=== PATIENT | male | born 1955 | race African-American/Black ===

== ENCOUNTER 2017-10-17 10:28 | Inpatient (IN) | payer OTHER ==
[2017-10-17 11:01] VITALS: BMI 24.7
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
[2017-10-17] MEDS ORDERED: guaiFENesin/D-METHORPHAN HB 10 ML UNIT-DOSE CUPS PO PRN (12:18)
[2017-10-17] MEDS ORDERED: P-EPHED 60MG/TRIPROLIDI 2.5MG TABLET PO PRN (12:18)
[2017-10-17] MEDS ORDERED: chlordiazePOXIDE HCL 25 MG CAPSULE PO PRN (12:18)
[2017-10-17] MEDS ORDERED: MAG HYDROX/AL HYDROX/SIMETH 30 ML UNIT-DOSE CUP PO PRN (12:18)
[2017-10-17] MEDS ORDERED: MAGNESIUM HYDROX 2400MG/30ML ORAL SUSPENSION 30 ML CUP PO PRN (12:18)
[2017-10-17] MEDS ORDERED: MAGNESIUM CITRATE 300 ML BOTTLE PO PRN (12:18)
[2017-10-17] MEDS ORDERED: MENTHOL/PHENOL 1 EACH UD MM PRN (12:18)
[2017-10-17] MEDS ORDERED: NICOTINE POLACRILEX 2 MG GUM BUC PRN (12:18)
[2017-10-17] MEDS ORDERED: LOPERAMIDE HCL 2 MG CAPSULE PO PRN (12:18)
[2017-10-17] MEDS ORDERED: IBUPROFEN 400 MG TABLET (FP) PO PRN (12:18)
[2017-10-17] MEDS ORDERED: ACETAMINOPHEN 325 MG TABLET (FP) PO PRN (12:18)
[2017-10-17] MEDS ORDERED: chlordiazePOXIDE HCL 25 MG CAPSULE PO ONE (12:50)
[2017-10-17] MEDS: NICOTINE 14 MG/24 HOURS TOPICAL PATCH TD SCH (13:16)
[2017-10-17 15:08] LABS: HEMATOCRIT 43.6 % (35.4-49); MCH 32.7 pg (25.7-33.7); MCHC 34.4 g/dl (32.0-35.9); MEAN CELL VOLUME 95.2 fl (80-96); PLATELET COUNT 354 K/MM3 (134-434); RBC 4.58 M/mm3 (4.00-5.60); RDW 14.3 % (11.9-15.9); WHITE BLOOD COUNT 5.8 K/mm3 (4.0-10.0)
[2017-10-17 15:18] LABS: ALBUMIN 4.2 g/dl (3.4-5.0); ANION GAP 10 (8-16); CALCIUM 9.5 mg/dL (8.5-10.1); CHLORIDE 99 mmol/L (98-107); CO2 26 mmol/L (21-32); GLUCOSE,RANDOM 138 mg/dL (74-106); POTASSIUM 4.2 mmol/L (3.5-5.1); SODIUM 135 mmol/L (136-145)
[2017-10-17 15:24] LABS: ALK PHOS 83 U/L (45-117); BILIRUBIN,TOTAL 0.3 mg/dL (0.2-1.0); BLOOD UREA NITROGEN 6 mg/dL (7-18); CREATININE 0.7 mg/dL (0.7-1.3); SGOT/AST 20 U/L (15-37); SGPT/ALT 22 U/L (12-78); TOT PROT 7.9 g/dl (6.4-8.2)
--- NOTE | 2017-10-17 15:50 | EKG ---
Test Reason : Blood Pressure : / mmHG Vent. Rate : 077 BPM Atrial Rate : 077 BPM P-R Int : 158 ms QRS Dur : 090 ms QT Int : 364 ms P-R-T Axes : 072 066 052 degrees QTc Int : 411 ms NORMAL SINUS RHYTHM NORMAL ECG NO PREVIOUS ECGS AVAILABLE Confirmed by JASIEL DA SILVA MD ([id number]) on 10/17/2017 3:50:01 PM Referred By: Confirmed By:JASIEL DA SILVA MD
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
[2017-10-17] MEDS: chlordiazePOXIDE HCL 25 MG CAPSULE PO SCH ×2 (17:32→22:24)
[2017-10-17 18:32] LABS: URINE APPEARANCE CLEAR; URINE BILIRUBIN NEGATIVE (NEGATIVE); URINE BLOOD 1+ (NEGATIVE); URINE COLOR LTYELLOW; URINE GLUCOSE (UA) NEGATIVE (NEGATIVE); URINE KETONE NEGATIVE (NEGATIVE); URINE LEUK ESTERASE NEGATIVE (NEGATIVE); URINE NITRITE NEGATIVE (NEGATIVE); URINE PROTEIN NEGATIVE (NEGATIVE); URINE UROBILINOGEN NEGATIVE mg/dL (0.2-1.0)
[2017-10-17 19:27] LABS: EPI CELLS RARE /HPF (FEW); URINE MUCUS RARE
[2017-10-17] MEDS: THIAMINE HCL 100 MG TABLET (FP) PO SCH (22:24)
[2017-10-17] MEDS: MELATONIN 5 MG TABLETS PO SCH (22:25)
[2017-10-17] MEDS: BENZTROPINE MESYLATE 1 MG TABLET (FP) PO SCH (22:25)
[2017-10-18] MEDS: chlordiazePOXIDE HCL 25 MG CAPSULE PO SCH ×4 (05:19→22:38)
[2017-10-18] MEDS: NICOTINE 14 MG/24 HOURS TOPICAL PATCH TD SCH (10:31)
[2017-10-18] MEDS: PRENATAL VITAMINS W/ FOLIC ACID TABLET (FP) PO SCH (10:31)
--- NOTE | 2017-10-18 12:19 | PN ---
[facility] CIWA - CIWA Score Nausea/Vomitin-No Nausea/No Vomiting Muscle Tremors: 4-Moderate,w/Arms Extend Anxiety: 4-Mod. Anxious/Guarded Agitation: 4-Moderately Restless Paroxysmal Sweats: 1-Minimal Palms Moist Orientation: 0-Oriented Tacttile Disturbances: 3-Moderate Itch/Numb/Burn Auditory Disturbances: 0-None Visual Disturbances: 0-None Headache: 0-None Present CIWA-Ar Total Score: 16 BHS Progress Note (SOAP) Subjective: ANXIETY,CHILLS,TREMORS. Objective: 10/18/17 12:18 Vital Signs Temperature 96.1 F L 10/18/17 10:31 Pulse Rate 80 10/18/17 10:31 Respiratory Rate 18 10/18/17 10:31 Blood Pressure 131/87 10/18/17 10:31 O2 Sat by Pulse Oximetry (%) Laboratory Last Values WBC 5.8 K/mm3 (4.0-10.0) 10/17/17 12:20 RBC 4.58 M/mm3 (4.00-5.60) 10/17/17 12:20 Hgb 15.0 GM/dL (11.7-16.9) 10/17/17 12:20 Hct 43.6 % (35.4-49) 10/17/17 12:20 MCV 95.2 fl (80-96) 10/17/17 12:20 MCH 32.7 pg (25.7-33.7) 10/17/17 12:20 MCHC 34.4 g/dl (32.0-35.9) 10/17/17 12:20 RDW 14.3 % (11.9-15.9) 10/17/17 12:20 Plt Count 354 K/MM3 (134-434) 10/17/17 12:20 MPV 8.0 fl (7.5-11.1) 10/17/17 12:20 Sodium 135 mmol/L (136-145) L 10/17/17 12:20 Potassium 4.2 mmol/L (3.5-5.1) 10/17/17 12:20 Chloride 99 mmol/L (98-107) 10/17/17 12:20 Carbon Dioxide 26 mmol/L (21-32) 10/17/17 12:20 Anion Gap 10 (8-16) 10/17/17 12:20 BUN 6 mg/dL (7-18) L D 10/17/17 12:20 Creatinine 0.7 mg/dL (0.7-1.3) 10/17/17 12:20 Creat Clearance w eGFR > 60 (>60) 10/17/17 12:20 Random Glucose 138 mg/dL (74-106) H D 10/17/17 12:20 Calcium 9.5 mg/dL (8.5-10.1) 10/17/17 12:20 Total Bilirubin 0.3 mg/dL (0.2-1.0) D 10/17/17 12:20 AST 20 U/L (15-37) 10/17/17 12:20 ALT 22 U/L (12-78) 10/17/17 12:20 Alkaline Phosphatase 83 U/L (45-117) 10/17/17 12:20 Total Protein 7.9 g/dl (6.4-8.2) 10/17/17 12:20 Albumin 4.2 g/dl (3.4-5.0) 10/17/17 12:20 Urine Color Ltyellow 10/17/17 17:00 Urine Appearance Clear 10/17/17 17:00 Urine pH 7.0 (5.0-8.0) 10/17/17 17:00 Ur Specific [place] 1.008 (1.001-1.035) 10/17/17 17:00 Urine Protein Negative (NEGATIVE) 10/17/17 17:00 Urine Glucose (UA) Negative (NEGATIVE) 10/17/17 17:00 Urine Ketones Negative (NEGATIVE) 10/17/17 17:00 Urine Blood 1+ (NEGATIVE) H 10/17/17 17:00 Urine Nitrite Negative (NEGATIVE) 10/17/17 17:00 Urine Bilirubin Negative (NEGATIVE) 10/17/17 17:00 Urine Urobilinogen Negative mg/dL (0.2-1.0) 10/17/17 17:00 Ur Leukocyte Esterase Negative (NEGATIVE) 10/17/17 17:00 Urine WBC (Auto) None /hpf (3-5) 10/17/17 17:00 Urine RBC (Auto) 2 /hpf (0-3) 10/17/17 17:00 Ur Epithelial Cells Rare /HPF (FEW) 10/17/17 17:00 Urine Mucus Rare 10/17/17 17:00 RPR Titer Nonreactive (NONREACTIVE) 10/17/17 12:20 Assessment: 10/18/17 12:18 WITHDRAWAL SX Plan: CONTINUE DETOX INCREASE PO FLUIDS
[2017-10-18] MEDS: THIAMINE HCL 100 MG TABLET (FP) PO SCH (22:37)
[2017-10-18] MEDS: MELATONIN 5 MG TABLETS PO SCH (22:38)
[2017-10-18] MEDS: BENZTROPINE MESYLATE 1 MG TABLET (FP) PO SCH (22:38)
[2017-10-19] MEDS: chlordiazePOXIDE HCL 25 MG CAPSULE PO SCH ×2 (05:42→10:15)
[2017-10-19] MEDS: PRENATAL VITAMINS W/ FOLIC ACID TABLET (FP) PO SCH (10:15)
[2017-10-19] MEDS: NICOTINE 14 MG/24 HOURS TOPICAL PATCH TD SCH (10:16)
--- NOTE | 2017-10-19 15:44 | PN ---
[facility] CIWA - CIWA Score Nausea/Vomitin-No Nausea/No Vomiting Muscle Tremors: 2 Anxiety: 3 Agitation: 2 Paroxysmal Sweats: 2 Orientation: 0-Oriented Tacttile Disturbances: 3-Moderate Itch/Numb/Burn Auditory Disturbances: 0-None Visual Disturbances: 1-Very Mild Sensitivity Headache: 0-None Present CIWA-Ar Total Score: 13 S Progress Note (SOAP) Subjective: Fatigue, Anxious, Tremors. Objective: PATIENT A & O X 3. NO ACUTE DISTRESS. 10/19/17 15:45 Vital Signs Temperature 95.6 F L 10/19/17 13:38 Pulse Rate 86 10/19/17 13:38 Respiratory Rate 18 10/19/17 13:38 Blood Pressure 115/71 10/19/17 13:38 O2 Sat by Pulse Oximetry (%) Laboratory Tests 10/17/17 10/17/17 10/17/17 12:20 12:20 12:20 WBC 5.8 RBC 4.58 Hgb 15.0 Hct 43.6 MCV 95.2 MCH 32.7 MCHC 34.4 RDW 14.3 Plt Count 354 MPV 8.0 Sodium 135 L Potassium 4.2 Chloride 99 Carbon Dioxide 26 Anion Gap 10 BUN 6 L D Creatinine 0.7 Creat Clearance w eGFR > 60 Random Glucose 138 H D Calcium 9.5 Total Bilirubin 0.3 D AST 20 ALT 22 Alkaline Phosphatase 83 Total Protein 7.9 Albumin 4.2 Urine Color Urine Appearance Urine pH Ur Specific [place] Urine Protein Urine Glucose (UA) Urine Ketones Urine Blood Urine Nitrite Urine Bilirubin Urine Urobilinogen Ur Leukocyte Esterase Urine WBC (Auto) Urine RBC (Auto) Ur Epithelial Cells Urine Mucus RPR Titer Nonreactive 10/17/17 17:00 WBC RBC Hgb Hct MCV MCH MCHC RDW Plt Count MPV Sodium Potassium Chloride Carbon Dioxide Anion Gap BUN Creatinine Creat Clearance w eGFR Random Glucose Calcium Total Bilirubin AST ALT Alkaline Phosphatase Total Protein Albumin Urine Color Ltyellow Urine Appearance Clear Urine pH 7.0 Ur Specific [place] 1.008 Urine Protein Negative Urine Glucose (UA) Negative Urine Ketones Negative Urine Blood 1+ H Urine Nitrite Negative Urine Bilirubin Negative Urine Urobilinogen Negative Ur Leukocyte Esterase Negative Urine WBC (Auto) None Urine RBC (Auto) 2 Ur Epithelial Cells Rare Urine Mucus Rare RPR Titer LABS NOTED. Assessment: 10/19/17 15:45 WITHDRAWAL SYMPTOMS. Plan: CONTINUE DETOX. INCREASE DAILY PO FLUID INTAKE.
[2017-10-19] MEDS: chlordiazePOXIDE 5 MG CAPSULE PO SCH ×2 (17:54→22:23)
[2017-10-19] MEDS: THIAMINE HCL 100 MG TABLET (FP) PO SCH (22:23)
[2017-10-19] MEDS: BENZTROPINE MESYLATE 1 MG TABLET (FP) PO SCH (22:23)
[2017-10-19] MEDS: MELATONIN 5 MG TABLETS PO SCH (22:23)
[2017-10-20] MEDS: chlordiazePOXIDE 5 MG CAPSULE PO SCH ×2 (05:42→10:23)
[2017-10-20] MEDS: PRENATAL VITAMINS W/ FOLIC ACID TABLET (FP) PO SCH (10:23)
[2017-10-20] MEDS: NICOTINE 14 MG/24 HOURS TOPICAL PATCH TD SCH (10:23)
--- NOTE | 2017-10-20 13:19 | PN ---
BHS Progress Note (SOAP) Subjective: Sweating, interrupted sleep Objective: 10/20/17 13:15 Last Vital Signs Temp Pulse Resp BP Pulse Ox 97.7 F 78 18 112/62 10/20/17 09:25 10/20/17 09:25 10/20/17 09:25 10/20/17 09:25 Laboratory Tests 10/17/17 10/17/17 10/17/17 12:20 12:20 12:20 WBC 5.8 RBC 4.58 Hgb 15.0 Hct 43.6 MCV 95.2 MCH 32.7 MCHC 34.4 RDW 14.3 Plt Count 354 MPV 8.0 Sodium 135 L Potassium 4.2 Chloride 99 Carbon Dioxide 26 Anion Gap 10 BUN 6 L D Creatinine 0.7 Creat Clearance w eGFR > 60 Random Glucose 138 H D Calcium 9.5 Total Bilirubin 0.3 D AST 20 ALT 22 Alkaline Phosphatase 83 Total Protein 7.9 Albumin 4.2 Urine Color Urine Appearance Urine pH Ur Specific [place] Urine Protein Urine Glucose (UA) Urine Ketones Urine Blood Urine Nitrite Urine Bilirubin Urine Urobilinogen Ur Leukocyte Esterase Urine WBC (Auto) Urine RBC (Auto) Ur Epithelial Cells Urine Mucus RPR Titer Nonreactive 10/17/17 17:00 WBC RBC Hgb Hct MCV MCH MCHC RDW Plt Count MPV Sodium Potassium Chloride Carbon Dioxide Anion Gap BUN Creatinine Creat Clearance w eGFR Random Glucose Calcium Total Bilirubin AST ALT Alkaline Phosphatase Total Protein Albumin Urine Color Ltyellow Urine Appearance Clear Urine pH 7.0 Ur Specific [place] 1.008 Urine Protein Negative Urine Glucose (UA) Negative Urine Ketones Negative Urine Blood 1+ H Urine Nitrite Negative Urine Bilirubin Negative Urine Urobilinogen Negative Ur Leukocyte Esterase Negative Urine WBC (Auto) None Urine RBC (Auto) 2 Ur Epithelial Cells Rare Urine Mucus Rare RPR Titer Labs noted: UA shows 1+ blood Assessment: 10/20/17 13:17 Withdrawal symptoms Noted with microscopic hematuria Plan: Continue detox Microscopic hematuria: encouraged to drink lots of water (at least 8 cups/day), repeat UA
[2017-10-20 17:09] LABS: URINE APPEARANCE CLEAR; URINE BILIRUBIN NEGATIVE (<2.0 mg/dL); URINE BLOOD NEGATIVE (NEGATIVE); URINE COLOR LTYELLOW; URINE GLUCOSE (UA) NEGATIVE (NEGATIVE); URINE KETONE NEGATIVE (NEGATIVE); URINE LEUK ESTERASE NEGATIVE (NEGATIVE); URINE NITRITE NEGATIVE (NEGATIVE); URINE PROTEIN NEGATIVE (NEGATIVE); URINE UROBILINOGEN NEGATIVE mg/dL (0.2-1.0)
[2017-10-20] MEDS: chlordiazePOXIDE HCL 10 MG CAPSULE PO SCH ×2 (17:32→22:29)
[2017-10-20] MEDS: THIAMINE HCL 100 MG TABLET (FP) PO SCH (22:29)
[2017-10-20] MEDS: BENZTROPINE MESYLATE 1 MG TABLET (FP) PO SCH (22:29)
[2017-10-20] MEDS: MELATONIN 5 MG TABLETS PO SCH (22:30)
[2017-10-21] MEDS: chlordiazePOXIDE HCL 10 MG CAPSULE PO SCH ×2 (05:50→10:20)
[2017-10-21 09:27] VITALS: BP 122/76; PULSE 83; TEMP 98.9
[2017-10-21] MEDS: PRENATAL VITAMINS W/ FOLIC ACID TABLET (FP) PO SCH (10:20)
[2017-10-21] MEDS: NICOTINE 14 MG/24 HOURS TOPICAL PATCH TD SCH (10:20)
--- NOTE | 2017-10-21 12:30 | PN ---
BHS Progress Note (SOAP) Subjective: Patient denies any current Detox symptoms and reports that he feels well overall. Objective: PATIENT A & O X 3, OBSERVED AMBULATING ON UNIT. NO ACUTE DISTRESS. 10/21/17 12:29 Vital Signs Temperature 98.9 F 10/21/17 09:26 Pulse Rate 83 10/21/17 09:26 Respiratory Rate 18 10/21/17 09:26 Blood Pressure 122/76 10/21/17 09:26 O2 Sat by Pulse Oximetry (%) Laboratory Tests 10/17/17 10/17/17 10/17/17 12:20 12:20 12:20 WBC 5.8 RBC 4.58 Hgb 15.0 Hct 43.6 MCV 95.2 MCH 32.7 MCHC 34.4 RDW 14.3 Plt Count 354 MPV 8.0 Sodium 135 L Potassium 4.2 Chloride 99 Carbon Dioxide 26 Anion Gap 10 BUN 6 L D Creatinine 0.7 Creat Clearance w eGFR > 60 Random Glucose 138 H D Calcium 9.5 Total Bilirubin 0.3 D AST 20 ALT 22 Alkaline Phosphatase 83 Total Protein 7.9 Albumin 4.2 Urine Color Urine Appearance Urine pH Ur Specific [place] Urine Protein Urine Glucose (UA) Urine Ketones Urine Blood Urine Nitrite Urine Bilirubin Urine Urobilinogen Ur Leukocyte Esterase Urine WBC (Auto) Urine RBC (Auto) Ur Epithelial Cells Urine Mucus RPR Titer Nonreactive 10/17/17 10/20/17 17:00 15:00 WBC RBC Hgb Hct MCV MCH MCHC RDW Plt Count MPV Sodium Potassium Chloride Carbon Dioxide Anion Gap BUN Creatinine Creat Clearance w eGFR Random Glucose Calcium Total Bilirubin AST ALT Alkaline Phosphatase Total Protein Albumin Urine Color Ltyellow Ltyellow Urine Appearance Clear Clear Urine pH 7.0 7.0 Ur Specific [place] 1.008 1.009 Urine Protein Negative Negative Urine Glucose (UA) Negative Negative Urine Ketones Negative Negative Urine Blood 1+ H Negative Urine Nitrite Negative Negative Urine Bilirubin Negative Negative Urine Urobilinogen Negative Negative Ur Leukocyte Esterase Negative Negative Urine WBC (Auto) None Urine RBC (Auto) 2 Ur Epithelial Cells Rare Urine Mucus Rare RPR Titer LABS NOTED. Assessment: 10/21/17 12:29 COMPLETION OF DETOX REGIMEN. Plan: PATIENT SCHEDULED FOR DISCHARGE FROM DETOX TODAY. PATIENT [facility] ([place]) FOR AFTERCARE.
--- NOTE | 2017-10-21 12:35 | DS ---
[facility] Detox Discharge Summary Admission Date: 10/17/17 Discharge Date: 10/21/17 - History Present History: Alcohol Dependence, Cannabis Dependence Additional Comments: PATIENT GOING TO [facility] ([place]) FOR AFTERCARE. PATIENT WAS DISCHARGED FROM DETOX UNIT IN STABLE MEDICAL CONDITION. Pertinent Past History: Nicotine dependence, Tremors, Schizophrenia, Depression. - Physical Exam Results Vital Signs: Vital Signs Temperature 98.9 F 10/21/17 09:26 Pulse Rate 83 10/21/17 09:26 Respiratory Rate 18 10/21/17 09:26 Blood Pressure 122/76 10/21/17 09:26 O2 Sat by Pulse Oximetry (%) Pertinent Admission Physical Exam Findings: WITHDRAWAL SYMPTOMS. Laboratory Tests 10/17/17 10/17/17 10/17/17 12:20 12:20 12:20 WBC 5.8 RBC 4.58 Hgb 15.0 Hct 43.6 MCV 95.2 MCH 32.7 MCHC 34.4 RDW 14.3 Plt Count 354 MPV 8.0 Sodium 135 L Potassium 4.2 Chloride 99 Carbon Dioxide 26 Anion Gap 10 BUN 6 L D Creatinine 0.7 Creat Clearance w eGFR > 60 Random Glucose 138 H D Calcium 9.5 Total Bilirubin 0.3 D AST 20 ALT 22 Alkaline Phosphatase 83 Total Protein 7.9 Albumin 4.2 Urine Color Urine Appearance Urine pH Ur Specific [place] Urine Protein Urine Glucose (UA) Urine Ketones Urine Blood Urine Nitrite Urine Bilirubin Urine Urobilinogen Ur Leukocyte Esterase Urine WBC (Auto) Urine RBC (Auto) Ur Epithelial Cells Urine Mucus RPR Titer Nonreactive 10/17/17 10/20/17 17:00 15:00 WBC RBC Hgb Hct MCV MCH MCHC RDW Plt Count MPV Sodium Potassium Chloride Carbon Dioxide Anion Gap BUN Creatinine Creat Clearance w eGFR Random Glucose Calcium Total Bilirubin AST ALT Alkaline Phosphatase Total Protein Albumin Urine Color Ltyellow Ltyellow Urine Appearance Clear Clear Urine pH 7.0 7.0 Ur Specific [place] 1.008 1.009 Urine Protein Negative Negative Urine Glucose (UA) Negative Negative Urine Ketones Negative Negative Urine Blood 1+ H Negative Urine Nitrite Negative Negative Urine Bilirubin Negative Negative Urine Urobilinogen Negative Negative Ur Leukocyte Esterase Negative Negative Urine WBC (Auto) None Urine RBC (Auto) 2 Ur Epithelial Cells Rare Urine Mucus Rare RPR Titer LABS NOTED. - Treatment Hospital Course: Detox Protocol Followed, Detoxed Safely, Responded well, Discharged Condition Good, Rehab Referral Accepted Patient has Accepted a Rehab Referral to: [facility] ([place], [place] . - Medication Discharge Medications: Ambulatory Orders Fluphenazine Decanoate [Prolixin Decanoate (Long-Acting Injection) -] 37.5 mg IM ASDIR 10/17/17 - Diagnosis (1) Alcohol dependence with uncomplicated withdrawal Current Visit: Yes Status: Acute (2) Cannabis dependence, uncomplicated Current Visit: Yes Status: Chronic (3) Nicotine dependence Current Visit: Yes Status: Chronic Qualifiers: Nicotine product type: cigarettes Substance use status: in withdrawal Qualified Code(s): F17.213 - Nicotine dependence, cigarettes, with withdrawal (4) Occasional tremors Current Visit: Yes Status: Chronic (5) Schizophrenia Current Visit: Yes Status: Chronic Qualifiers: Schizophrenia type: paranoid schizophrenia Qualified Code(s): F20.0 - Paranoid schizophrenia - AMA Did Patient Leave Against Medical Advice: No
== END 2017-10-21 13:17 | disposition home or self-care (01) | DRG 775 ==
LOC: YASAS 10:28 → Y3N 12:14
PROVIDERS: ADMIT Internal Medicine; ATTEND Internal Medicine
PROC: HZ2ZZZZ Detoxification Services for Substance Abuse Treatment (ICD-10-PCS; principal; 2017-10-17)
DX: F10.230 Alcohol dependence with withdrawal, uncomplicated (principal); F12.20 Cannabis dependence, uncomplicated; F17.210 Nicotine dependence, cigarettes, uncomplicated; F32.9 Major depressive disorder, single episode, unspecified; F20.0 Paranoid schizophrenia; R76.11 Nonspecific reaction to tuberculin skin test without active tuberculosis; R25.1 Tremor, unspecified; Z91.5 Personal history of self-harm
CPT/HCPCS: 36415; 80053; 81003; 81015; 85027; 86593; 93005; 93010

== ENCOUNTER 2021-06-26 14:27 | Inpatient (IN) | payer OTHER ==
[2021-06-26] MEDS ORDERED: MAGNESIUM CITRATE 300 ML BOTTLE PO PRN ×2 (16:02→16:08)
[2021-06-26] MEDS ORDERED: diazePAM 5 MG TABLET PO PRN ×2 (16:02→16:08)
[2021-06-26] MEDS ORDERED: NICOTINE 10 MG CARTRIDGE (INHALER) IH PRN ×2 (16:02→16:08)
[2021-06-26] MEDS ORDERED: IBUPROFEN 400 MG TABLET (FP) PO PRN ×2 (16:02→16:08)
[2021-06-26] MEDS ORDERED: METHOCARBAMOL 500 MG TABLET PO PRN ×2 (16:02→16:08)
[2021-06-26] MEDS ORDERED: MENTHOL/PHENOL 1 EACH UD MM PRN ×2 (16:02→16:08)
[2021-06-26] MEDS ORDERED: ACETAMINOPHEN 325 MG TABLET (FP) PO PRN ×4 (16:02→16:08)
[2021-06-26] MEDS ORDERED: ONDANSETRON *ODT* 4 MG TABLET SL PRN ×2 (16:02→16:08)
[2021-06-26] MEDS ORDERED: MAGNESIUM HYDROX 2400MG/30ML ORAL SUSPENSION 30 ML CUP PO PRN ×2 (16:02→16:08)
[2021-06-26] MEDS ORDERED: BISMUTH SUBSALICYLATE 524 MG/30 ML PO PRN ×2 (16:02→16:08)
[2021-06-26] MEDS ORDERED: MAG HYDROX/AL HYDROX/SIMETH 30 ML UNIT-DOSE CUP PO PRN ×2 (16:02→16:08)
[2021-06-26 16:41] VITALS: BMI 23.0
[2021-06-26] MEDS ORDERED: hydrOXYzine PAMOATE 25 MG CAPSULE (FP) PO SCH (18:00)
[2021-06-26] MEDS: hydrOXYzine PAMOATE 25 MG CAPSULE (FP) PO SCH ×2 (18:26→22:45)
[2021-06-26] MEDS ORDERED: THIAMINE HCL 100 MG TABLET (FP) PO SCH (22:00)
[2021-06-26] MEDS ORDERED: MELATONIN 5 MG TABLETS PO SCH (22:00)
[2021-06-26] MEDS: diazePAM 5 MG TABLET PO SCH (22:45)
[2021-06-26] MEDS: MELATONIN 5 MG TABLETS PO SCH (22:45)
[2021-06-26] MEDS ORDERED: diazePAM 5 MG TABLET PO SCH (23:00)
[2021-06-26] MEDS: THIAMINE HCL 100 MG TABLET (FP) PO SCH (23:12)
[2021-06-27] MEDS: diazePAM 5 MG TABLET PO SCH ×4 (05:06→22:12)
[2021-06-27] MEDS: hydrOXYzine PAMOATE 25 MG CAPSULE (FP) PO SCH ×5 (05:06→22:12)
[2021-06-27] MEDS ORDERED: PRENATAL VITAMINS W/ FOLIC ACID TABLET (FP) PO SCH (10:00)
[2021-06-27] MEDS: PRENATAL VITAMINS W/ FOLIC ACID TABLET (FP) PO SCH (10:04)
[2021-06-27 14:01] LABS: HEMOGLOBIN 13.5 GM/dL (11.7-16.9); MCH 33.3 pg (25.7-33.7); MCHC 35.5 g/dl (32.0-35.9); MEAN CELL VOLUME 93.9 fl (80-96); MEAN PLT VOLUME 7.7 fl (7.5-11.1); PLATELET COUNT 325 10^3/uL (134-434); RBC 4.04 M/mm3 (4.00-5.60); RDW 13.3 % (11.9-15.9); WHITE BLOOD COUNT 5.7 K/mm3 (4.0-10.0)
[2021-06-27 14:26] LABS: CALCIUM 9.2 mg/dL (8.5-10.1)
[2021-06-27 14:27] LABS: ALBUMIN 3.5 g/dl (3.4-5.0); BLOOD UREA NITROGEN 5.6 mg/dL (7-18)
[2021-06-27 14:30] LABS: CREATININE 0.8 mg/dL (0.55-1.3)
[2021-06-27 14:32] LABS: BILIRUBIN,TOTAL 0.3 mg/dL (0.2-1); TOT PROT 7.2 g/dl (6.4-8.2)
[2021-06-27] MEDS: BENZTROPINE MESYLATE 1 MG TABLET PO SCH (22:11)
[2021-06-27] MEDS: THIAMINE HCL 100 MG TABLET (FP) PO SCH (22:12)
[2021-06-27] MEDS: MELATONIN 5 MG TABLETS PO SCH (22:12)
[2021-06-28] MEDS: diazePAM 5 MG TABLET PO SCH ×3 (05:30→22:53)
[2021-06-28] MEDS: hydrOXYzine PAMOATE 25 MG CAPSULE (FP) PO SCH ×5 (05:30→22:52)
[2021-06-28] MEDS ORDERED: diazePAM 5 MG TABLET PO SCH (06:00)
[2021-06-28] MEDS: PRENATAL VITAMINS W/ FOLIC ACID TABLET (FP) PO SCH (10:15)
[2021-06-28] MEDS: MELATONIN 5 MG TABLETS PO SCH (22:52)
[2021-06-28] MEDS: BENZTROPINE MESYLATE 1 MG TABLET PO SCH (22:52)
[2021-06-28] MEDS: THIAMINE HCL 100 MG TABLET (FP) PO SCH (22:52)
[2021-06-29] MEDS: hydrOXYzine PAMOATE 25 MG CAPSULE (FP) PO SCH ×5 (05:15→22:06)
[2021-06-29] MEDS: diazePAM 5 MG TABLET PO SCH ×2 (05:15→17:47)
[2021-06-29] MEDS ORDERED: diazePAM 5 MG TABLET PO SCH (06:00)
[2021-06-29] MEDS: PRENATAL VITAMINS W/ FOLIC ACID TABLET (FP) PO SCH (10:13)
[2021-06-29] MEDS: MELATONIN 5 MG TABLETS PO SCH (22:06)
[2021-06-29] MEDS: THIAMINE HCL 100 MG TABLET (FP) PO SCH (22:06)
[2021-06-29] MEDS: BENZTROPINE MESYLATE 1 MG TABLET PO SCH (22:06)
[2021-06-30] MEDS: hydrOXYzine PAMOATE 25 MG CAPSULE (FP) PO SCH ×2 (05:08→10:11)
[2021-06-30] MEDS ORDERED: diazePAM 5 MG TABLET PO ONE ×2 (06:00)
[2021-06-30 09:06] VITALS: BP 133/76; PULSE 108; TEMP 97.3
[2021-06-30] MEDS: PRENATAL VITAMINS W/ FOLIC ACID TABLET (FP) PO SCH (10:10)
== END 2021-06-30 11:34 | disposition home or self-care (01) | DRG 897 ==
LOC: YASAS 14:27 → Y3N 16:35
PROVIDERS: ADMIT Allergy & Immunology; ATTEND Allergy & Immunology
PROC: HZ2ZZZZ Detoxification Services for Substance Abuse Treatment (ICD-10-PCS; principal; 2021-06-26)
DX: F10.230 Alcohol dependence with withdrawal, uncomplicated (principal); F14.20 Cocaine dependence, uncomplicated; F20.0 Paranoid schizophrenia; F12.220 Cannabis dependence with intoxication, uncomplicated; F17.210 Nicotine dependence, cigarettes, uncomplicated; E86.0 Dehydration; Z86.11 Personal history of tuberculosis; Z56.0 Unemployment, unspecified
CPT/HCPCS: 36415; 71046-TC-FY; 80053; 82947; 85027; 86780; 90853; C9803; U0003; U0005

== ENCOUNTER 2021-09-28 14:12 | Inpatient (IN) | payer OTHER ==
[2021-09-28] MEDS ORDERED: MAG HYDROX/AL HYDROX/SIMETH 30 ML UNIT-DOSE CUP PO PRN (15:27)
[2021-09-28] MEDS ORDERED: MAGNESIUM CITRATE 300 ML BOTTLE PO PRN (15:27)
[2021-09-28] MEDS ORDERED: LOPERAMIDE HCL 2 MG CAPSULE PO PRN (15:27)
[2021-09-28] MEDS ORDERED: ONDANSETRON *ODT* 4 MG TABLET SL PRN (15:27)
[2021-09-28] MEDS ORDERED: MAGNESIUM HYDROX 2400MG/30ML ORAL SUSPENSION 30 ML CUP PO PRN (15:27)
[2021-09-28] MEDS ORDERED: IBUPROFEN 400 MG TABLET (FP) PO PRN (15:27)
[2021-09-28] MEDS ORDERED: MENTHOL/PHENOL 1 EACH UD MM PRN (15:27)
[2021-09-28] MEDS ORDERED: BISMUTH SUBSALICYLATE 524 MG/30 ML PO PRN (15:27)
[2021-09-28] MEDS ORDERED: ACETAMINOPHEN 325 MG TABLET (FP) PO PRN ×2 (15:27)
[2021-09-28] MEDS ORDERED: NICOTINE 10 MG CARTRIDGE (INHALER) IH PRN (15:27)
[2021-09-28 15:49] VITALS: BMI 23.7
[2021-09-28] MEDS: hydrOXYzine PAMOATE 25 MG CAPSULE (FP) PO SCH ×2 (19:04→22:16)
[2021-09-28] MEDS: PRENATAL VITAMINS W/ FOLIC ACID TABLET (FP) PO SCH (19:04)
[2021-09-28] MEDS: THIAMINE HCL 100 MG TABLET (FP) PO SCH (22:16)
[2021-09-28] MEDS: BENZTROPINE MESYLATE 1 MG TABLET PO SCH (22:16)
[2021-09-28] MEDS: MELATONIN 5 MG TABLETS PO SCH (22:16)
[2021-09-29] MEDS: hydrOXYzine PAMOATE 25 MG CAPSULE (FP) PO SCH ×5 (05:53→21:18)
[2021-09-29] MEDS: NICOTINE 14 MG/24 HOURS TOPICAL PATCH TD SCH (10:28)
[2021-09-29] MEDS: PRENATAL VITAMINS W/ FOLIC ACID TABLET (FP) PO SCH (10:29)
[2021-09-29] MEDS: BENZTROPINE MESYLATE 1 MG TABLET PO SCH ×2 (10:29→21:17)
[2021-09-29] MEDS ORDERED: fluPHENAZine DECANOATE 125 MG/5ML VIAL IM SCH ×2 (12:45→13:00)
[2021-09-29 12:56] LABS: HEMATOCRIT 37.1 % (35.4-49); HEMOGLOBIN 13.4 GM/dL (11.7-16.9); MCH 33.3 pg (25.7-33.7); MEAN CELL VOLUME 92.4 fl (80-96); MEAN PLT VOLUME 7.2 fl (7.5-11.1); PLATELET COUNT 367 10^3/uL (134-434); RBC 4.01 M/mm3 (4.00-5.60); RDW 14.2 % (11.9-15.9); WHITE BLOOD COUNT 4.6 K/mm3 (4.0-10.0)
[2021-09-29 13:02] LABS: CALCIUM 9.6 mg/dL (8.5-10.1)
[2021-09-29 13:03] LABS: ALBUMIN 3.8 g/dl (3.4-5.0); BLOOD UREA NITROGEN 4.6 mg/dL (7-18)
[2021-09-29 13:06] LABS: CREATININE 0.7 mg/dL (0.55-1.3)
[2021-09-29 13:08] LABS: BILIRUBIN,TOTAL 0.3 mg/dL (0.2-1); TOT PROT 7.3 g/dl (6.4-8.2)
[2021-09-29] MEDS ORDERED: fluPHENAZine DECANOATE 125 MG/5ML VIAL IM ONE (13:30)
[2021-09-29] MEDS: THIAMINE HCL 100 MG TABLET (FP) PO SCH (21:17)
[2021-09-29] MEDS: MELATONIN 5 MG TABLETS PO SCH (21:17)
[2021-09-30] MEDS: hydrOXYzine PAMOATE 25 MG CAPSULE (FP) PO SCH ×5 (05:58→21:21)
[2021-09-30] MEDS: NICOTINE 14 MG/24 HOURS TOPICAL PATCH TD SCH (09:13)
[2021-09-30] MEDS: PRENATAL VITAMINS W/ FOLIC ACID TABLET (FP) PO SCH (09:13)
[2021-09-30] MEDS: BENZTROPINE MESYLATE 1 MG TABLET PO SCH ×2 (09:13→21:21)
[2021-09-30] MEDS: MELATONIN 5 MG TABLETS PO SCH (21:21)
[2021-09-30] MEDS: METHOCARBAMOL 500 MG TABLET PO PRN (21:21)
[2021-09-30] MEDS: THIAMINE HCL 100 MG TABLET (FP) PO SCH (21:21)
[2021-10-01] MEDS: hydrOXYzine PAMOATE 25 MG CAPSULE (FP) PO SCH ×5 (06:16→21:14)
[2021-10-01] MEDS: PRENATAL VITAMINS W/ FOLIC ACID TABLET (FP) PO SCH (10:07)
[2021-10-01] MEDS: BENZTROPINE MESYLATE 1 MG TABLET PO SCH ×2 (10:07→21:15)
[2021-10-01] MEDS: METHOCARBAMOL 500 MG TABLET PO PRN ×2 (10:07→21:14)
[2021-10-01] MEDS: NICOTINE 14 MG/24 HOURS TOPICAL PATCH TD SCH (10:07)
[2021-10-01] MEDS: THIAMINE HCL 100 MG TABLET (FP) PO SCH (21:15)
[2021-10-01] MEDS: MELATONIN 5 MG TABLETS PO SCH (21:15)
[2021-10-02] MEDS: hydrOXYzine PAMOATE 25 MG CAPSULE (FP) PO SCH ×3 (07:06→09:41)
[2021-10-02 07:09] VITALS: BP 126/80; PULSE 101; TEMP 97.9
[2021-10-02] MEDS: NICOTINE 14 MG/24 HOURS TOPICAL PATCH TD SCH (09:41)
[2021-10-02] MEDS: PRENATAL VITAMINS W/ FOLIC ACID TABLET (FP) PO SCH (09:41)
[2021-10-02] MEDS: BENZTROPINE MESYLATE 1 MG TABLET PO SCH (10:44)
== END 2021-10-02 11:50 | disposition left against medical advice (07) | DRG 894 ==
LOC: YASAS 14:12 → Y3N 17:33 → Y5N 09-29 13:21
PROVIDERS: ADMIT Allergy & Immunology; ATTEND Allergy & Immunology
PROC: HZ42ZZZ Group Counseling for Substance Abuse Treatment, Cognitive-Behavioral (ICD-10-PCS; principal; 2021-09-28)
DX: F10.20 Alcohol dependence, uncomplicated (principal); F11.20 Opioid dependence, uncomplicated; F14.20 Cocaine dependence, uncomplicated; F20.0 Paranoid schizophrenia; F12.20 Cannabis dependence, uncomplicated; F17.210 Nicotine dependence, cigarettes, uncomplicated; E78.00 Pure hypercholesterolemia, unspecified
CPT/HCPCS: 36415; 80053; 85027; 86780; 90853; C9803; H0038-GT; U0003; U0005

== ENCOUNTER 2023-12-26 13:32 | Inpatient (IN) | payer OTHER ==
[2023-12-26 14:22] VITALS: BMI 20.3
[2023-12-26] MEDS ORDERED: MAGNESIUM HYDROX 2400MG/30ML ORAL SUSPENSION 30 ML CUP PO PRN (16:00)
[2023-12-26] MEDS ORDERED: LOPERAMIDE HCL 2 MG CAPSULE PO PRN (16:00)
[2023-12-26] MEDS ORDERED: IBUPROFEN 400 MG TABLET (FP) PO PRN (16:00)
[2023-12-26] MEDS ORDERED: guaiFENesin 600 MG TABLET.ER (FP) PO PRN (16:00)
[2023-12-26] MEDS ORDERED: NALOXONE HCL (KLOXXADO) 8 MG SPRAY NS PRN (16:00)
[2023-12-26] MEDS ORDERED: NALOXONE HCL 0.4 MG/ML VIAL IM PRN (16:00)
[2023-12-26] MEDS ORDERED: BENZOCAINE/MENTHOL (CHLORASEPTIC ) LOZENGE MM PRN (16:00)
[2023-12-26] MEDS ORDERED: MAG HYDROX/AL HYDROX/SIMETH 30 ML UNIT-DOSE CUP PO PRN (16:00)
[2023-12-26] MEDS ORDERED: POLYETHYLENE GLYCOL (HEALTHYLAX) 3350 17 GM PACKET PO PRN (16:00)
[2023-12-26] MEDS ORDERED: hydrOXYzine PAMOATE 25 MG CAPSULE (FP) PO PRN (16:00)
[2023-12-26] MEDS ORDERED: BENZONATATE 200 MG CAPSULE PO PRN (16:00)
[2023-12-26] MEDS: PRENATAL VITAMINS W/ FOLIC ACID TABLET (FP) PO SCH (17:22)
[2023-12-26] MEDS: THIAMINE 100 MG TABLET PO SCH (21:45)
[2023-12-26] MEDS: MELATONIN 5 MG TABLETS PO SCH (21:45)
[2023-12-27] MEDS: BENZTROPINE MESYLATE 1 MG TABLET PO SCH (10:30)
[2023-12-27] MEDS: traZODone HCL 50 MG TABLET (FP) PO SCH (21:40)
[2023-12-28] MEDS: IBUPROFEN 600 MG TABLET (FP) PO PRN (06:22)
[2023-12-30 06:53] VITALS: RESP 18
[2023-12-31] MEDS: ACETAMINOPHEN 325 MG TABLET (FP) PO PRN (09:42)
[2023-12-31 11:36] LABS: BASO % 0.6 % (0-2.0); EOS % 1.8 % (0-4.5); HEMATOCRIT 35.7 % (35.4-49); HEMOGLOBIN 12.5 GM/dL (11.7-16.9); LYMPH % 30.1 % (8-40); MCH 32.8 pg (25.7-33.7); MCHC 34.9 g/dl (32.0-35.9); MEAN CELL VOLUME 93.8 fl (80-96); MEAN PLT VOLUME 7.2 fl (7.5-11.1); MONO % 14.7 % (3.8-10.2); NEUT % 52.8 % (42.8-82.8); PLATELET COUNT 341 10^3/uL (134-434); RDW 14.7 % (11.9-15.9); WHITE BLOOD COUNT 5.6 K/mm3 (4.0-10.0)
[2023-12-31 11:37] LABS: POTASSIUM 4.4 mmol/L (3.5-5.1)
[2023-12-31 11:42] LABS: ALBUMIN 3.7 g/dl (3.4-5.0); CALCIUM 9.2 mg/dL (8.5-10.1)
[2023-12-31 11:44] LABS: INR 0.91 (0.83-1.09); PROTHROMBIN TIME (PATIENT) 10.5 SEC (9.7-13.0)
[2023-12-31 11:45] LABS: BLOOD UREA NITROGEN 6.9 mg/dL (7-18); CREATININE 0.6 mg/dL (0.55-1.3)
[2023-12-31 11:47] LABS: BILIRUBIN,TOTAL 0.4 mg/dL (0.2-1); TOT PROT 7.1 g/dl (6.4-8.2)
[2024-01-03] MEDS: fluPHENAZine DECANOATE 125 MG/5ML VIAL IM ONE (10:45)
[2024-01-09] MEDS: PRENATAL VITAMINS W/ FOLIC ACID TABLET (FP) PO SCH (09:55)
[2024-01-13 07:09] VITALS: BP 123/64; PULSE 94; TEMP 98.1
== END 2024-01-13 09:45 | disposition home or self-care (01) | DRG 895 ==
LOC: EDBD → YASAS 13:32 → Y3NR 16:50 → Y5N 12-27 18:46
PROVIDERS: ADMIT Allergy & Immunology; ATTEND Psychiatry & Neurology Pain Medicine
PROC: HZ42ZZZ Group Counseling for Substance Abuse Treatment, Cognitive-Behavioral (ICD-10-PCS; principal; 2023-12-26)
DX: F10.20 Alcohol dependence, uncomplicated (principal); F14.20 Cocaine dependence, uncomplicated; F12.20 Cannabis dependence, uncomplicated; F17.210 Nicotine dependence, cigarettes, uncomplicated; F25.0 Schizoaffective disorder, bipolar type; F41.9 Anxiety disorder, unspecified; M25.551 Pain in right hip; R76.11 Nonspecific reaction to tuberculin skin test without active tuberculosis
CPT/HCPCS: 36415; 71045-TC-FY; 73502-TC-RT-FY; 80053; 80305; 80307; 82140; 82652; 83735; 85025; 85610; 87811; 93005; 93010